=== PATIENT | male | born 1945 | race Caucasian/White ===

== ENCOUNTER → 2019-02-04 | Outpatient (CLI) | payer MEDICARE, BC ==
--- NOTE | 2019-02-04 10:20 | REP ---
MRI RIGHT KNEE: TECHNIQUE: Axial proton density fat saturation, sagittal proton density T2 STIR, water excitation, coronal proton density, proton density fat saturation. There is an extensive complex tear of the posterior horn of the medial meniscus. The entire lateral meniscus is macerated and there are complex tears of the anterior and posterior horns. The cruciate and medial collateral ligaments are intact. The lateral collateral ligament is thinned with an angulating appearance, with no associated acute edema. This appears to have been previously torn at least partially extensor mechanism is intact. There is moderate diffuse chondromalacia of the patella with a tiny subchondral cyst centrally. There is moderate to severe chondromalacia in the lateral compartment, most significantly posteriorly along the lateral femoral condyle with mild subchondral marrow edema at that location. There is also severe chondromalacia centrally at the weightbearing surface of the lateral femoral condyle and tibial plateau, with mild subchondral marrow edema in this portion of the lateral tibial plateau. There is also moderate chondromalacia in the medial compartment mostly significantly centrally along the weightbearing surface of the medial femoral condyle. There is a moderate joint effusion. Mild fluid anterior to the patella suggests mild prepatellar bursitis. Loculated cystic changes are seen just posterior to the posterior cruciate ligament with multiple somewhat complex cystic locules of fluid measuring a subcentimeter in diameter up to about 1.2 cm. Complex septated King's cyst is seen in the medial popliteal fossa extending inferiorly into the very proximal calf along the posterior surface of the medial head of the gastrocnemius. Maximum craniocaudal dimension is approximately 9 cm but the thickness is only slightly less than 1 cm. There is mild to moderate diffuse spurring of the femoral condyles and tibial plateaus. IMPRESSION :Extensive complex tear of the anterior and posterior horns of the lateral meniscus. Complex tear posterior horn medial meniscus. At least partial old tear lateral collateral ligament. Moderate diffuse chondromalacia of the patella. 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 Moderate joint effusion. Loculated cystic changes at the posterior margin of the joint, posterior to the posterior cruciate ligament. Thinned loculated septated Bakers cyst in the medial popliteal fossa extending inferiorly along the posterior surface of the medial head of the gastrocnemius. Mild prepatellar bursitis. Electronically Signed by Jered Stuart MD 02/08/2019 08:43 A
== END ==
LOC: M PLARAD 08:05
PROVIDERS: ATTEND Orthopaedic Surgery Sports Medicine
DX: S83.271A Complex tear of lateral meniscus, current injury, right knee, initial encounter (principal); S83.231A Complex tear of medial meniscus, current injury, right knee, initial encounter; M22.41 Chondromalacia patellae, right knee; M25.461 Effusion, right knee; M71.21 Synovial cyst of popliteal space [Baker], right knee; M17.11 Unilateral primary osteoarthritis, right knee

== ENCOUNTER → 2022-08-22 | Outpatient (CLI) | payer MEDICARE, BC | LOC: M PLAIMG 16:43 | PROVIDERS: ATTEND Orthopaedic Surgery | DX: M54.2 Cervicalgia (principal); M25.78 Osteophyte, vertebrae; Z98.1 Arthrodesis status; M47.812 Spondylosis without myelopathy or radiculopathy, cervical region; M48.02 Spinal stenosis, cervical region ==

== ENCOUNTER → 2022-09-18 | Outpatient (CLI) | payer MEDICARE, BC | LOC: M RAD 13:08 | DX: R93.7 Abnormal findings on diagnostic imaging of other parts of musculoskeletal system (principal); M25.512 Pain in left shoulder; M25.612 Stiffness of left shoulder, not elsewhere classified ==